=== PATIENT | male | born 1950 | race Caucasian/White ===

== ENCOUNTER → 2017-09-09 | Outpatient (CLI) | payer MEDICARE | END | disposition home or self-care (01) | LOC: PLD 13:18 → LAB SHORT 13:18 | DX: D22.72 Melanocytic nevi of left lower limb, including hip (principal) | CPT/HCPCS: 88305 ==

== ENCOUNTER → 2021-05-31 | Outpatient (CLI) | payer OTHER ==
[2021-05-31 13:26] LABS: BASOPHILS ABSOLUTE AUTO 0.11 K/mm3 (0.00-0.23); BASOPHILS PERCENT AUTO 1 % (0-2); EOSINOPHILS ABSOLUTE AUTO 0.31 K/mm3 (0.00-0.68); EOSINOPHILS PERCENT AUTO 3 % (0-6); Hematocrit 49.7 % (37.0-53.0); Hemoglobin 17.2 g/dL (13.5-17.5); IMMATURE GRAN ABSOLUTE AUTO 0.06 K/mm3 (0.00-0.10); IMMATURE GRAN PERCENT AUTO 1 % (0-1); LYMPHOCYTES ABSOLUTE AUTO 0.84 K/mm3 (0.84-5.20); LYMPHOCYTES PERCENT AUTO 8 % (21-46); MONOCYTES ABSOLUTE AUTO 0.94 K/mm3 (0.16-1.47); MONOCYTES PERCENT AUTO 9 % (4-13); Mean Corpuscular HGB 32.8 pg (26.0-34.0); Mean Corpuscular HGB Conc 34.6 g/dL (31.5-36.5); Mean Corpuscular Volume 95 fL (80-100); Mean Platelet Volume 10.4 fL (9.1-12.4); NEUTROPHILS ABSOLUTE AUTO 8.48 K/mm3 (1.96-9.15); NEUTROPHILS PERCENT AUTO 79 % (41-73); Platelet Count 440 K/mm3 (150-400); RDW Coefficient Variation 13.7 % (11.7-14.2); RDW Standard Deviation 47.6 fL (35.1-46.3); Red Blood Cell Count 5.24 M/mm3 (4.30-5.90); White Blood Cell Count 10.74 K/mm3 (4.00-11.30)
[2021-05-31 13:36] LABS: Albumin/Globulin Ratio 1.3 (0.8-1.8); Bilirubin, Total 0.6 mg/dL (0.1-1.0); Bun/Creatinine Ratio 13.8 (12.0-20.0); Calcium, Blood 9.2 mg/dL (8.5-10.1); Creatinine, Blood 1.23 mg/dL (0.60-1.20); Globulin, Blood 3.2 g/dL (2.2-4.0); Potassium, Blood 4.2 mmol/L (3.5-5.5); Total Protein, Blood 7.2 g/dL (6.4-8.2)
== END ==
LOC: LAB SHORT 13:22
PROVIDERS: General Practice
DX: R06.2 Wheezing (principal)
CPT/HCPCS: 80053; 85025

== ENCOUNTER 2022-09-22 11:54 | Emergency (ER) | payer OTHER ==
[~2022-09-22] VITALS: Ht 172.7 cm; Wt 78.0 kg
[2022-09-22 13:09] LABS: BASOPHILS ABSOLUTE AUTO 0.08 K/mm3 (0.00-0.23); BASOPHILS PERCENT AUTO 1 % (0-2); EOSINOPHILS ABSOLUTE AUTO 0.17 K/mm3 (0.00-0.68); EOSINOPHILS PERCENT AUTO 1 % (0-6); Hemoglobin 18.2 g/dL (13.5-17.5); IMMATURE GRAN ABSOLUTE AUTO 0.05 K/mm3 (0.00-0.10); IMMATURE GRAN PERCENT AUTO 0 % (0-1); LYMPHOCYTES ABSOLUTE AUTO 0.37 K/mm3 (0.84-5.20); LYMPHOCYTES PERCENT AUTO 3 % (21-46); MONOCYTES ABSOLUTE AUTO 0.14 K/mm3 (0.16-1.47); MONOCYTES PERCENT AUTO 1 % (4-13); Mean Corpuscular HGB 29.1 pg (26.0-34.0); Mean Corpuscular HGB Conc 32.7 g/dL (31.5-36.5); Mean Corpuscular Volume 89 fL (80-100); Mean Platelet Volume 10.4 fL (9.1-12.4); NEUTROPHILS ABSOLUTE AUTO 11.55 K/mm3 (1.96-9.15); NEUTROPHILS PERCENT AUTO 94 % (41-73); Platelet Count 533 K/mm3 (150-400); RDW Coefficient Variation 13.9 % (11.7-14.2); RDW Standard Deviation 44.7 fL (35.1-46.3); Red Blood Cell Count 6.25 M/mm3 (4.30-5.90); White Blood Cell Count 12.36 K/mm3 (4.00-11.30)
[2022-09-22 13:15] LABS: Hematocrit 55.6 % (37.0-53.0)
[2022-09-22 13:36] LABS: Source, Urine Clean Catch
[2022-09-22 13:38] LABS: Albumin, Blood 3.8 g/dL (3.4-5.0); Albumin/Globulin Ratio 1.3 (0.8-1.8); Bilirubin, Total 0.5 mg/dL (0.1-1.0); Bun/Creatinine Ratio 17.4 (12.0-20.0); Creatinine, Blood 1.09 mg/dL (0.60-1.20); Globulin, Blood 2.9 g/dL (2.2-4.0); Total Protein, Blood 6.7 g/dL (6.4-8.2)
[2022-09-22 13:39] LABS: Appearance, Urine Clear (Clear); Bilirubin, Urine Neg (Neg); Blood, Urine Neg (Neg); Color, Urine Yellow (P-Yellow); Glucose Qualitative, Urine Neg (Neg); Ketones, Urine Neg (Neg); Leukocyte Esterase, Urine Neg (Neg); Nitrite, Urine Neg (Neg); Protein, Urine 3+ (Neg); Specific Gravity, Urine 1.015 (1.003-1.022); Urobilinogen, Urine NORM (Normal)
[2022-09-22 13:50] LABS: Amorphous Light (0-Heavy); Hyaline Casts 0-2 /lpf (0-2); Squamous Epithelial Cells Rare /hpf (Few)
[2022-09-22 13:51] LABS: Bacteria Few /hpf
[2022-09-22 13:52] LABS: Red Blood Cells, Urine 0-2 /hpf (0-2)
[2022-09-22 17:30] VITALS: BP 172/86
[2022-09-22 17:50] LABS: CPK Creatine Kinase 86 U/L (39-308)
== END 2022-09-22 18:47 | disposition home or self-care (01) ==
LOC: ER 11:54
PROVIDERS: Student in an Organized Health Care Education/Training Program
DX: B34.9 Viral infection, unspecified (principal); E86.0 Dehydration; E11.9 Type 2 diabetes mellitus without complications; I10 Essential (primary) hypertension; Z88.8 Allergy status to other drugs, medicaments and biological substances; Z87.891 Personal history of nicotine dependence
CPT/HCPCS: 80053; 81001; 82550; 85025; 93005; 93010; J1885; J2765; J7030

== ENCOUNTER → 2023-05-09 | Outpatient (CLI) | payer OTHER ==
[~2023-05-09] MED LIST: AMLODIPINE BESYL5 MG PO; AZIT250; B-12500 MC2 PO; C COMPLEX1000 M1 PO; Chlorpromazine50 MG PO; EUTHYROX150 MC1 PO; FISH OIL 1,2001 EAC7 PO; GABA100 PO; LOSA50 PO; SYMBICORT 160-4.6 GM INH; THERA-D2000 UNIT PO; Ventolin/Prove6.7 GM INH
[2023-05-09 14:17] LABS: BASOPHILS ABSOLUTE AUTO 0.01 K/mm3 (0.00-0.23); BASOPHILS PERCENT AUTO 0 % (0-2); EOSINOPHILS PERCENT AUTO 0 % (0-6); Hematocrit 51.1 % (37.0-53.0); Hemoglobin 17.5 g/dL (13.5-17.5); IMMATURE GRAN ABSOLUTE AUTO 0.03 K/mm3 (0.00-0.10); IMMATURE GRAN PERCENT AUTO 1 % (0-1); LYMPHOCYTES ABSOLUTE AUTO 0.31 K/mm3 (0.84-5.20); LYMPHOCYTES PERCENT AUTO 5 % (21-46); MONOCYTES PERCENT AUTO 5 % (4-13); Mean Corpuscular HGB 31.8 pg (26.0-34.0); Mean Corpuscular HGB Conc 34.2 g/dL (31.5-36.5); Mean Corpuscular Volume 93 fL (80-100); Mean Platelet Volume 10.2 fL (9.1-12.4); NEUTROPHILS ABSOLUTE AUTO 5.48 K/mm3 (1.96-9.15); NEUTROPHILS PERCENT AUTO 89 % (41-73); Platelet Count 299 K/mm3 (150-400); RDW Coefficient Variation 14.8 % (11.7-14.2); RDW Standard Deviation 50.3 fL (35.1-46.3); White Blood Cell Count 6.13 K/mm3 (4.00-11.30)
[2023-05-09 14:30] LABS: Albumin/Globulin Ratio 0.8 (0.8-1.8); Bilirubin, Total 0.5 mg/dL (0.1-1.0); Bun/Creatinine Ratio 19.8 (12.0-20.0); Calcium, Blood 8.1 mg/dL (8.5-10.1); Creatinine, Blood 1.67 mg/dL (0.60-1.20); Globulin, Blood 3.9 g/dL (2.2-4.0); Potassium, Blood 4.9 mmol/L (3.5-5.5); Total Protein, Blood 6.9 g/dL (6.4-8.2)
== END | disposition home or self-care (01) ==
LOC: LAB 14:14 → LAB SHORT 14:14
PROVIDERS: Emergency Medicine
DX: R11.10 Vomiting, unspecified (principal)
CPT/HCPCS: 80053; 85025

== ENCOUNTER 2023-05-12 12:24 | Inpatient (IN) | payer OTHER ==
[~2023-05-12] VITALS: Ht 167.6 cm; Wt 70.5 kg
[2023-05-12] MEDS ORDERED: AZIT250 (12:36)
[2023-05-12] MEDS ORDERED: Chlorpromazine50 MG PO (12:36)
[2023-05-12] MEDS ORDERED: EUTHYROX150 MC1 PO (12:37)
[2023-05-12] MEDS ORDERED: GABA100 PO (12:37)
[2023-05-12] MEDS ORDERED: Ventolin/Prove6.7 GM INH (12:37)
[2023-05-12] MEDS ORDERED: AMLODIPINE BESYL5 MG PO (12:37)
[2023-05-12 12:48] LABS: BASOPHILS ABSOLUTE AUTO 0.02 K/mm3 (0.00-0.23); BASOPHILS PERCENT AUTO 0 % (0-2); EOSINOPHILS PERCENT AUTO 0 % (0-6); Hematocrit 47.9 % (37.0-53.0); Hemoglobin 16.4 g/dL (13.5-17.5); IMMATURE GRAN ABSOLUTE AUTO 0.07 K/mm3 (0.00-0.10); IMMATURE GRAN PERCENT AUTO 1 % (0-1); LYMPHOCYTES ABSOLUTE AUTO 0.38 K/mm3 (0.84-5.20); LYMPHOCYTES PERCENT AUTO 5 % (21-46); MONOCYTES ABSOLUTE AUTO 0.13 K/mm3 (0.16-1.47); MONOCYTES PERCENT AUTO 2 % (4-13); Mean Corpuscular HGB 31.6 pg (26.0-34.0); Mean Corpuscular HGB Conc 34.2 g/dL (31.5-36.5); Mean Corpuscular Volume 92 fL (80-100); Mean Platelet Volume 10.6 fL (9.1-12.4); NEUTROPHILS ABSOLUTE AUTO 7.28 K/mm3 (1.96-9.15); NEUTROPHILS PERCENT AUTO 92 % (41-73); Platelet Count 292 K/mm3 (150-400); RDW Coefficient Variation 15.2 % (11.7-14.2); RDW Standard Deviation 51.7 fL (35.1-46.3); Red Blood Cell Count 5.19 M/mm3 (4.30-5.90); White Blood Cell Count 7.88 K/mm3 (4.00-11.30)
[2023-05-12 12:49] LABS: Base Excess Venous -5.4 mmol/L; Bicarbonate Venous 19.9 mmol/L (24.0-30.0); PCO2 Venous 40.3 mmHg (38-42); pH Blood Venous 7.32 (7.34-7.37)
[2023-05-12 14:02] LABS: Albumin, Blood 2.4 g/dL (3.4-5.0); Albumin/Globulin Ratio 0.6 (0.8-1.8); Bilirubin, Total 0.5 mg/dL (0.1-1.0); Bun/Creatinine Ratio 27.6 (12.0-20.0); Calcium, Blood 7.5 mg/dL (8.5-10.1); Creatinine, Blood 1.45 mg/dL (0.60-1.20); Globulin, Blood 3.9 g/dL (2.2-4.0); Potassium, Blood 4.5 mmol/L (3.5-5.5); Total Protein, Blood 6.3 g/dL (6.4-8.2)
[2023-05-12] MEDS ORDERED: LOSA50 PO (18:42)
[2023-05-12] MEDS ORDERED: SYMBICORT 160-4.6 GM INH (18:44)
[2023-05-12] MEDS ORDERED: B-12500 MC2 PO (18:45)
[2023-05-12] MEDS ORDERED: THERA-D2000 UNIT PO (18:46)
[2023-05-12] MEDS ORDERED: FISH OIL 1,2001 EAC7 PO (18:46)
[2023-05-12] MEDS ORDERED: C COMPLEX1000 M1 PO (18:46)
[2023-05-12 19:22] LABS: Influenza A, PCR NEGATIVE (NEGATIVE); Influenza B, PCR NEGATIVE (NEGATIVE); Resp Syncytial Virus, PCR NEGATIVE (NEGATIVE)
[2023-05-12 19:45] LABS: SARS-Cov-2 (COVID-19) PCR, MMC POSITIVE (NEGATIVE)
[2023-05-12 20:47] VITALS: BP 150/77
[2023-05-12 22:39] LABS: Bun/Creatinine Ratio 27.2 (12.0-20.0); Calcium, Blood 7.4 mg/dL (8.5-10.1); Creatinine, Blood 1.73 mg/dL (0.60-1.20); Potassium, Blood 4.7 mmol/L (3.5-5.5)
[2023-05-12 23:19] VITALS: BP 157/84
[2023-05-13 00:53] LABS: Glucose, Blood 494 mg/dL (70-99)
[2023-05-13 03:30] VITALS: BP 150/86
--- NOTE | 2023-05-13 04:34 | NUR ---
SHIFT SUMMARY PT IS ALERT AND ORIENTED X 4, COOPERATIVE WITH CARE AND ABLE TO MAKE NEEDS KNOWN. AT BEGINNING OF SHIFT PT WAS ON 8L NC AND HE WAS SOB. RESPIRATORY THERAPY WAS IN TO SEE PT AND PT IS NOW ON BIPAP W/11L BLEED IN. HE HAS TAKEN A FEW SHORT BREAKS THIS SHIFT AND WAS PLACED ON 11L NC. PT HAS HX OF COPD, HIS 02 SATURATION HAS BEEN BETWEEN 88 AND 92 ALL SHIFT. AT BEGINNING OF SHIFT PTS BLOOD SUGAR WAS >500, MD NOTIFIED, ORDERS PLACED, AND PT MEDICATED PER ORDERS. PT'S BLOOD SUGARS HAVE BEEN CONTINUALLY CHECKED THIS SHIFT AND HE HAS CONTINUED TO BE MEDICATED PER EMAR. HIS BLOOD SUGAR LEVELS HAVE COME DOWN FROM >500. PT SAID HE HAS NOT HAD A BOWEL MOVEMENT IN A WEEK, MD NOTIFIED, ORDERS WERE PLACED, AND PT MEDICATED PER EMAR. PT IS CONTINENT OF BOTH BLADDER AND BOWELS. HE USES URINAL INDEPNDENTLY AT BEDSIDE. HE IS ABLE TO USE BEDSIDE COMMODE WITH 1 PERSON ASSIST. HE IS VERY WEAK WHEN MOVING AROUND. PT CURRENTLY RESTING IN BED WITH BIPAP ON. CALL LIGHT WITHIN REACH.
[2023-05-13 05:41] LABS: BASOPHILS ABSOLUTE AUTO 0.01 K/mm3 (0.00-0.23); BASOPHILS PERCENT AUTO 0 % (0-2); EOSINOPHILS PERCENT AUTO 0 % (0-6); Hematocrit 44.8 % (37.0-53.0); Hemoglobin 15.7 g/dL (13.5-17.5); IMMATURE GRAN ABSOLUTE AUTO 0.06 K/mm3 (0.00-0.10); IMMATURE GRAN PERCENT AUTO 1 % (0-1); LYMPHOCYTES ABSOLUTE AUTO 0.25 K/mm3 (0.84-5.20); LYMPHOCYTES PERCENT AUTO 4 % (21-46); MONOCYTES ABSOLUTE AUTO 0.14 K/mm3 (0.16-1.47); MONOCYTES PERCENT AUTO 3 % (4-13); Mean Corpuscular HGB 31.8 pg (26.0-34.0); Mean Corpuscular Volume 91 fL (80-100); Mean Platelet Volume 10.2 fL (9.1-12.4); NEUTROPHILS ABSOLUTE AUTO 5.21 K/mm3 (1.96-9.15); NEUTROPHILS PERCENT AUTO 92 % (41-73); Platelet Count 352 K/mm3 (150-400); RDW Coefficient Variation 14.8 % (11.7-14.2); RDW Standard Deviation 49.4 fL (35.1-46.3); Red Blood Cell Count 4.94 M/mm3 (4.30-5.90); White Blood Cell Count 5.67 K/mm3 (4.00-11.30)
[2023-05-13 06:39] LABS: Albumin, Blood 2.3 g/dL (3.4-5.0); Albumin/Globulin Ratio 0.5 (0.8-1.8); Bilirubin, Total 0.3 mg/dL (0.1-1.0); Bun/Creatinine Ratio 28.4 (12.0-20.0); Calcium, Blood 8.1 mg/dL (8.5-10.1); Creatinine, Blood 1.69 mg/dL (0.60-1.20); Globulin, Blood 4.2 g/dL (2.2-4.0); Potassium, Blood 4.4 mmol/L (3.5-5.5); Total Protein, Blood 6.5 g/dL (6.4-8.2)
[2023-05-13 08:15] LABS: D-Dimer, Quantitative 1.37 mg/L FEU (0.00-0.52); International Normalized Ratio 1.05
[2023-05-13 08:24] VITALS: BP 148/79
--- NOTE | 2023-05-13 11:21 | NUR ---
AM NOTE; PT ON 10L OF O2 THIS MORNING UPON SHIFT ASSESSMENT, VITALS HRR SR/ST 90-110'S, SBP 140'S, AFEBRILE. SOB//NON PRODUCTIVE COUGH WITH EXERTION, COUGH MEDICINE GIVEN THIS MORNING. BIPAP AT BEDSIDE, BREATHING TX PER RT. PT DENIES ANY CHEST PAIN/PRESSURE NO DISCOMFORT, FEELING TIRED AND FATUGED, HAS TREMORS WHICH PT REPORTS BASELINE. NO REPORTED BM YET AT THIS TIME, WILL GIVE PRN MIRALAX TODAY. NO OTHER ISSUES REPORTED AT THIS TIME, PT HAS BEEN CALLING APPROPRIATELY, CALL LIGHTS IN REACH WILL CONTINUE TO MONITOR
[2023-05-13 12:18] VITALS: BP 148/76
[2023-05-13 16:23] VITALS: BP 156/75
--- NOTE | 2023-05-13 18:32 | NUR ---
PT SUMMARY: NO ACUTE CHANGE FOR THE SHIFT. PT REMAINS ON 9-10L OF O2 VIA NASAL CANNULA PT SOB WITH EXERTION DESATS TO LOW 80'S, SBP 150'S, AFEBRILE. PT WITH DRY COUGH AND AUDIBLE WHEEZES T/O SHIFT MEDICATED WITH COUGH MEDICINE AND BREATHING TX PER RT. PT SBA TO BEDSIDE COMMODE HAD 2 LOOSE BMS FOR THE SHIFT. PT WITH GOOD APPETITE. FAMILY CAME IN TO SEE PT THIS AFTERNOON WAS GIVEN UPDATE REGARDING PLAN OF CARE. NO OTHER ISSUES ENCOUNTERED FOR THE SHIFT, PT HAS BEEN CALLING APPROPRIATELY, WILL REPORT TO ONCOMING SHIFT
[2023-05-13 20:06] VITALS: BP 158/83
--- NOTE | 2023-05-13 20:34 | NUR ---
PHYSICIAN COMMUNICATION CALLED [employer] SUPERINTENDENT RESIDENT, DR ANDRES, TO NOTIFY HER THAT THE PATIENT'S BLOOD SUGAR WAS 394 AFTER BEING GIVEN 8 UNITS HUMALOG AT 1749 FOR A BLOOD SUGAR OF 433. INFORMED HER THAT THIS RN ADMINISTERED 6 UNITS HUMALOG PER THE HIGH SLIDING SCALE FOR THE SUGAR OF 394, AND THAT ABOUT AN HOUR AGO THE PATIENT HAD TO BE PLACED ON BIPAP BY THE RESPIRATORY THERAPIST TO HELP WITH OXYGEN DEMAND. DR ANDRES ORDERED A BMP FOR NOW AND TO INCREASE THE PATIENT'S AM GLARGINE TO 20 UNITS. WILL CONTINUE TO MONITOR.
[2023-05-13 21:26] LABS: Bun/Creatinine Ratio 30.4 (12.0-20.0); Creatinine, Blood 2.07 mg/dL (0.60-1.20); Potassium, Blood 3.8 mmol/L (3.5-5.5)
[2023-05-13 23:55] VITALS: BP 145/85
[2023-05-14] VITALS (8 sets, daily range): BP systolic 150–179; BP diastolic 73–89
[2023-05-14 05:27] LABS: BASOPHILS ABSOLUTE AUTO 0.01 K/mm3 (0.00-0.23); BASOPHILS PERCENT AUTO 0 % (0-2); EOSINOPHILS PERCENT AUTO 0 % (0-6); Hematocrit 48.5 % (37.0-53.0); Hemoglobin 16.9 g/dL (13.5-17.5); IMMATURE GRAN ABSOLUTE AUTO 0.09 K/mm3 (0.00-0.10); IMMATURE GRAN PERCENT AUTO 1 % (0-1); LYMPHOCYTES ABSOLUTE AUTO 0.45 K/mm3 (0.84-5.20); LYMPHOCYTES PERCENT AUTO 6 % (21-46); MONOCYTES PERCENT AUTO 3 % (4-13); Mean Corpuscular HGB 31.9 pg (26.0-34.0); Mean Corpuscular HGB Conc 34.8 g/dL (31.5-36.5); Mean Corpuscular Volume 92 fL (80-100); Mean Platelet Volume 10.1 fL (9.1-12.4); NEUTROPHILS ABSOLUTE AUTO 6.65 K/mm3 (1.96-9.15); NEUTROPHILS PERCENT AUTO 90 % (41-73); Platelet Count 441 K/mm3 (150-400); RDW Coefficient Variation 15.4 % (11.7-14.2); RDW Standard Deviation 51.5 fL (35.1-46.3)
[2023-05-14 06:09] LABS: Calcium, Blood 8.4 mg/dL (8.5-10.1); Creatinine, Blood 2.12 mg/dL (0.60-1.20); Potassium, Blood 4.3 mmol/L (3.5-5.5)
--- NOTE | 2023-05-14 06:48 | NUR ---
SHIFT SUMMARY PATIENT ALERT AND ORIENTED X4. HAD NO COMPLAINTS OF PAIN OR SHORTNESS OF BREATH. PATIENT WAS ON BIPAP OVERNIGHT WITH SPO2 >90%. BLOOD SUGARS CONTINUE TO BE ELEVATED. VITAL SIGNS STABLE, SINUS RHYTHM TO SINUS TACH ON TELE. WILL CONTINUE TO MONITOR. CALL LIGHT WITHIN REACH.
--- NOTE | 2023-05-14 10:25 | NUR ---
AM NOTE this rn assumed care at 0700. vital signs stable. tele sinus tach 102. spo2 >90% on 10l nc. patient reports shortness of breath with exertion. patient reports no pain or chest pain/pressure. patient is alert and oriented x4. perrla. patient is able to make needs known and uses call light appropriately. patient is a one person assist when getting out of bed. see shift assessment for further detials. md sen and team in to see patient this am and discussed plan of care. plan of care remains up to date.
[2023-05-14 14:24] LABS: Calcium, Blood 8.2 mg/dL (8.5-10.1); Potassium, Blood 3.7 mmol/L (3.5-5.5)
--- NOTE | 2023-05-14 17:53 | NUR ---
shift summary patient neuro remains intact and no changes. perrla. patient has been able to make needs known and uses call light appropriately. patient blood pressure elevated this evening, md sen made aware and new orders placed. see vital signs for trend and improvment from medication. tele sinus tach 100-110 and will touch into 120s with activity. spo2 >90% on 6-10l nc throughout the day, patient is currently on 7l nc with spo2 >90%. patient family at bedside and educated on proper ppe techniques and to wash their hands before leaving. patient family verbalized understanding. plan of care remains up to date. call light within reach.
[2023-05-15 03:29] VITALS: BP 162/92
--- NOTE | 2023-05-15 06:58 | NUR ---
SHIFT SUMMARY PATIENT ALERT AND ORIENTED X4. HAD NO COMPLAINTS OF PAIN. WORE BIPAP OVERNIGHT, CURRENTLY ON 7 LITERS O2 VIA NC, IS DYSPNIC ON EXERTION. VITAL SIGNS STABLE, HAD A 21 BEAT RUN OF SVT OVERNIGHT, MD AWARE. WILL CONTINUE TO MONITOR. CALL LIGHT WITHIN REACH.
[2023-05-15 07:49] VITALS: BP 170/88
[2023-05-15 12:05] VITALS: BP 167/73
[2023-05-15 13:24] LABS: Bun/Creatinine Ratio 35.9 (12.0-20.0); Calcium, Blood 8.9 mg/dL (8.5-10.1); Creatinine, Blood 1.81 mg/dL (0.60-1.20); Potassium, Blood 4.3 mmol/L (3.5-5.5)
[2023-05-15 16:03] VITALS: BP 162/74
--- NOTE | 2023-05-15 19:35 | NUR ---
DR. ALLEN NOTIFIED OF PT CBG OF 154 TONIGHT. SEE ADJUSTMENTS MADE TO HUMALOG ORDERS.
--- NOTE | 2023-05-15 19:37 | NUR ---
SUMMARY: PT ADMITTED FOR COVID, PNA. A/O, VSS TODAY. PT CURRENTLY ON 2L, SP02 90-94%. RR 20-24. PT REPORTS FEELING BETTER TODAY WITH MORE ENERGY. ABLE TO AMBULATE TO CHAIR SEVERAL TIMES TODAY, SBA. NO ACUTE EVENTS WITH TELE ST 105-118, DENIES CP. TREMORS APPEAR TO BE BETTER TONIGHT. PT USING CALL LIGHT TO MAKE NEEDS KNOWN. NO ACUTE SAFETY CONCERNS. REPORT PASSED TO SHASHANK STEINER.
[2023-05-15 21:53] VITALS: BP 157/87
[2023-05-16 00:14] VITALS: BP 172/88
[2023-05-16 01:34] VITALS: BP 152/75
[2023-05-16 04:06] VITALS: BP 147/71
[2023-05-16 04:49] LABS: Hematocrit 45.8 % (37.0-53.0); Hemoglobin 15.5 g/dL (13.5-17.5); Mean Corpuscular HGB 31.1 pg (26.0-34.0); Mean Corpuscular HGB Conc 33.8 g/dL (31.5-36.5); Mean Corpuscular Volume 92 fL (80-100); Mean Platelet Volume 9.7 fL (9.1-12.4); Platelet Count 552 K/mm3 (150-400); RDW Coefficient Variation 16.2 % (11.7-14.2); RDW Standard Deviation 55.2 fL (35.1-46.3); Red Blood Cell Count 4.98 M/mm3 (4.30-5.90); White Blood Cell Count 9.35 K/mm3 (4.00-11.30)
[2023-05-16 05:12] LABS: BAND PERCENT MAN 3 % (0-8); BASOPHILS ABSOLUTE MAN 0.09 K/mm3 (0.00-0.23); BASOPHILS PERCENT MAN 1 % (0-2); EOSINOPHILS PERCENT MAN 0 % (0-6); LYMPHOCYTES % ATYPICAL MANUAL 1 % (0-0); LYMPHOCYTES ABSOLUTE MAN 1.02 K/mm3 (0.84-5.20); LYMPHOCYTES PERCENT MAN 10 % (21-46); MONOCYTES ABSOLUTE MAN 0.84 K/mm3 (0.16-1.47); MONOCYTES PERCENT MAN 9 % (4-13); MYELOCYTE ABSOLUTE MAN 0.09 K/mm3 (0.00-0.00); MYELOCYTE PERCENT MAN 1 % (0-0); NEUTROPHILS ABSOLUTE MAN 7.29 K/mm3 (1.96-9.15); SEG NEUTROPHILS PERCENT MAN 75 % (41-73); TOTAL CELLS COUNTED 100
[2023-05-16 05:25] LABS: Bun/Creatinine Ratio 40.5 (12.0-20.0); Creatinine, Blood 1.73 mg/dL (0.60-1.20); Potassium, Blood 4.6 mmol/L (3.5-5.5)
--- NOTE | 2023-05-16 06:36 | NUR ---
SHIFT SUMMARY PATIENT ALERT AND ORIENTED X 4. HAD NO COMPMLAINTS OF PAIN, BECOMES SHORT OF BREATH WITH ACTIVITY. ON 2 LITERS O2 VIA NC OVERNIGHT WITH SPO2 95%. MEDICATED PER EMAR FOR SBP >170, SINUS TACH ON TELE. WILL CONTINUE TO MONITOR. CALL LIGHT WITHIN REACH.
[2023-05-16 08:18] VITALS: BP 178/88
[2023-05-16 11:43] VITALS: BP 161/94
[2023-05-16] MEDS ORDERED: Tessalon200 MG PO (15:51)
[2023-05-16] MEDS ORDERED: PRED20 PO (15:51)
[2023-05-16] MEDS ORDERED: IPRAT-ALBUT 0.5-3 ML INH (15:52)
[2023-05-16] MEDS ORDERED: VISBIOME 112.51 EACH PO (15:52)
--- NOTE | 2023-05-16 16:27 | NUR ---
UPDATE PT ALERT AND ORIENTED. VS STABLE. PT DENIES ANY PAIN. HOME O2 EVAL COMPLETE AND [facility] DELIVERED PORTABLE O2. PT PROVIDED DISCHARGE INSTRUCTIONS AND EDUCATED ON MEDICATIONS. ALL QUESTIONS ANSWERED. PT'S SISTER IN TO GROUP TEACHER PATIENT. PT TAKEN OUT BY WC
== END 2023-05-16 16:50 | disposition home health service (06) | DRG 871 ==
LOC: ER 12:24 → PCU 16:15
PROVIDERS: Emergency Medicine; Family Medicine; Student in an Organized Health Care Education/Training Program; ADMIT Hospitalist
PROC: XW033E5 Introduction of Remdesivir Anti-infective into Peripheral Vein, Percutaneous Approach, New Technology Group 5 (ICD-10-PCS; principal; 2023-05-12)
PROC: 3E03329 Introduction of Other Anti-infective into Peripheral Vein, Percutaneous Approach (ICD-10-PCS; 2023-05-12)
PROC: 3E0333Z Introduction of Anti-inflammatory into Peripheral Vein, Percutaneous Approach (ICD-10-PCS; 2023-05-12)
PROC: 5A09457 Assistance with Respiratory Ventilation, 24-96 Consecutive Hours, Continuous Positive Airway Pressure (ICD-10-PCS; 2023-05-12)
DX: A41.89 Other specified sepsis (principal); J12.82 Pneumonia due to coronavirus disease 2019; U07.1 COVID-19; J96.21 Acute and chronic respiratory failure with hypoxia; J15.9 Unspecified bacterial pneumonia; J44.0 Chronic obstructive pulmonary disease with (acute) lower respiratory infection; J44.1 Chronic obstructive pulmonary disease with (acute) exacerbation; N17.9 Acute kidney failure, unspecified; I47.10 Supraventricular tachycardia, unspecified; Z66 Do not resuscitate; R65.20 Severe sepsis without septic shock; K59.00 Constipation, unspecified; M50.30 Other cervical disc degeneration, unspecified cervical region; I12.9 Hypertensive chronic kidney disease with stage 1 through stage 4 chronic kidney disease, or unspecified chronic kidney disease; E11.22 Type 2 diabetes mellitus with diabetic chronic kidney disease; N18.32 Chronic kidney disease, stage 3b; E03.9 Hypothyroidism, unspecified; N40.0 Benign prostatic hyperplasia without lower urinary tract symptoms; R79.1 Abnormal coagulation profile; Z79.890 Hormone replacement therapy; Z87.891 Personal history of nicotine dependence; Z99.81 Dependence on supplemental oxygen
CPT/HCPCS: 0241U; 36415; 71045; 80048; 80053; 82803; 82947; 83036; 83735; 84132; 85025; 85379; 85610; 85730; 87040; 93005; 93010; 94640; 94660; 94664; 94762; 99285-25; A9270; C9113; C9399; J0248; J0360; J0696; J1650; J1815; J2930; J7030; J7050

== ENCOUNTER 2024-12-28 10:49 | Inpatient (IN) | payer OTHER ==
[~2024-12-28] VITALS: Ht 172.7 cm; Wt 74.7 kg
[~2024-12-28 10:49] MED LIST changes: +IPRAT-ALBUT 0.5-3 ML INH; +PRED20 PO; +Tessalon200 MG PO; +VISBIOME 112.51 EACH PO
[2024-12-28 11:52] LABS: BASOPHILS ABSOLUTE AUTO 0.07 K/mm3 (0.00-0.23); BASOPHILS PERCENT AUTO 1 % (0-2); EOSINOPHILS ABSOLUTE AUTO 0.34 K/mm3 (0.00-0.68); EOSINOPHILS PERCENT AUTO 3 % (0-6); Hematocrit 52.1 % (37.0-53.0); Hemoglobin 17.6 g/dL (13.5-17.5); IMMATURE GRAN ABSOLUTE AUTO 0.04 K/mm3 (0.00-0.10); IMMATURE GRAN PERCENT AUTO 0 % (0-1); LYMPHOCYTES ABSOLUTE AUTO 1.10 K/mm3 (0.84-5.20); LYMPHOCYTES PERCENT AUTO 9 % (21-46); MONOCYTES ABSOLUTE AUTO 0.64 K/mm3 (0.16-1.47); MONOCYTES PERCENT AUTO 5 % (4-13); Mean Corpuscular HGB Conc 33.8 g/dL (31.5-36.5); Mean Corpuscular Volume 92 fL (80-100); NEUTROPHILS ABSOLUTE AUTO 9.62 K/mm3 (1.96-9.15); NEUTROPHILS PERCENT AUTO 82 % (41-73); NRBC ABSOLUTE 0.00 K/mm3 (0.00-0.02); NRBC Auto 0.0 /100 WBC (0.0-0.2); Platelet Count 573 K/mm3 (150-400); RDW Coefficient Variation 13.6 % (11.7-14.2); RDW Standard Deviation 46.3 fL (35.1-46.3)
[2024-12-28 12:15] LABS: Alanine Aminotransfer (ALT/SGP 31.0 U/L (12-78); Albumin, Blood 3.7 g/dL (3.4-5.0); Albumin/Globulin Ratio 1.1 (0.8-1.8); Anion Gap 8.0 mmol/L (3-11); Aspartate Aminotrans (AST/SGOT 22.0 U/L (12-37); Bilirubin, Total 0.4 mg/dL (0.1-1.0); Blood Urea Nitrogen 33.0 mg/dL (8-24); CO2, Blood 25.0 mmol/L (21-32); Calcium, Blood 8.8 mg/dL (8.5-10.1); Chloride, Blood 107.0 mmol/L (98-108); Creatinine, Blood 1.44 mg/dL (0.60-1.20); Globulin, Blood 3.3 g/dL (2.2-4.0); Glucose, Blood 143.0 mg/dL (70-99); Potassium, Blood 5.1 mmol/L (3.5-5.5); Sodium, Blood 135.0 mmol/L (136-145); Total Protein, Blood 7.0 g/dL (6.4-8.2)
[2024-12-28 12:16] LABS: Prothrombin Time Results 11.2 Sec (9.7-11.5)
[2024-12-28] MEDS ORDERED: Glipizide Xl2.5 MG (15:19)
[2024-12-28] MEDS ORDERED: TELMISARTAN80 MG PO (15:19)
[2024-12-28] MEDS ORDERED: EZETIMIBE10 M6 PO (15:19)
[2024-12-28] MEDS ORDERED: NS 1,000 ML IV SCH (15:30)
[2024-12-28 15:48] VITALS: BP 171/86
[2024-12-28] MEDS ORDERED: Insulin Human Lispro 100 Units/ML 3ML Syringe SC SCH (16:30)
[2024-12-28 20:04] VITALS: BP 164/87
--- NOTE | 2024-12-28 20:09 | NUR ---
Patient arrived to room 362 via gurney from ER at 1540. Patient transferred to bed without difficulty. Patient with noted right arm flaccidity and decreased strength to right leg noted. Patient is alert and oriented x3 with slow speech, no noted slurred speech. Patient denied pain, SOB, CP, N/V/D. Patient had MRI completed and awaiting results. Bed in lowest position; call light within reach. Report given to awake overnight counselor nurse.
[2024-12-29 03:40] VITALS: BP 179/91
--- NOTE | 2024-12-29 04:34 | NUR ---
SHIFT SUMMARY ADMITTED FOR CVA. RIGHT SIDED DEFICITS. DNR CODE. ALLOWING PERMISSIVE HTN. PLAN IS FOR 3 WEEKS DAPT. ON 3 LPM O2. 1 ASSIST W/FWW. TELEMETRY: NSR @ 94 BPM. ADA DIET. PALLIATIVE CARE IS CONSULTED. [facility] CBG'S - MEDIUM SS. AWAITING PT EVAL.
[2024-12-29 05:14] LABS: Hematocrit 54.3 % (37.0-53.0); Hemoglobin 18.3 g/dL (13.5-17.5); Mean Corpuscular HGB Conc 33.7 g/dL (31.5-36.5); Mean Corpuscular Volume 91 fL (80-100); NRBC ABSOLUTE 0.00 K/mm3 (0.00-0.02); NRBC Auto 0.0 /100 WBC (0.0-0.2); Platelet Count 547 K/mm3 (150-400); RDW Coefficient Variation 13.6 % (11.7-14.2); RDW Standard Deviation 45.8 fL (35.1-46.3)
[2024-12-29] MEDS ORDERED: Levothyroxine Sodium 0.15 MG Tab PO SCH (06:00)
[2024-12-29 06:10] LABS: Albumin, Blood 3.8 g/dL (3.4-5.0); Anion Gap 11 mmol/L (3-11); Blood Urea Nitrogen 31 mg/dL (8-24); CO2, Blood 25 mmol/L (21-32); Calcium, Blood 8.8 mg/dL (8.5-10.1); Chloride, Blood 106 mmol/L (98-108); Creatinine, Blood 1.58 mg/dL (0.60-1.20); Glucose, Blood 132 mg/dL (70-99); Magnesium, Blood 2.1 mg/dL (1.6-2.4); Phosphorus, Blood 3.7 mg/dL (2.5-4.9); Potassium, Blood 4.6 mmol/L (3.5-5.5); Sodium, Blood 137 mmol/L (136-145)
[2024-12-29 08:07] VITALS: BP 148/83
[2024-12-29 14:21] VITALS: BP 155/83
[2024-12-29 16:27] VITALS: BP 169/89
--- NOTE | 2024-12-29 17:04 | NUR ---
PT HAS BEEN DOING WELL AOX4 AND COOPERATIVE OF CARE. PT IS ABLE TO TALK WELL NOW AND SEEMS TO HAVE FUNCTION OF R LEG ALLOWING HIM TO BE ABLE TO AMBULATE DOWN THE HALLWAY WITH PHYSICAL THERAPY. PT AT THE START OF SHIFT COULD ONLY RAISE R ARM UP WITH LIMP HAND AND NOW MILD MOVEMENT IS NOTED IN R HAND WELL. FAMILY DROPPED HOME CPAP OFF FOR TONIGHT AND RT WAS NOTIFIED TO SET UP SYSTEM IN ROOM. PT HAS CALL LIGHT IN REACH AND IS ABLE TO MAKE NEEDS KNOWN WILL CONTINUE TO MONITOR.
[2024-12-29 19:43] VITALS: BP 146/83
[2024-12-29] MEDS ORDERED: Albuterol 2.5 MG/3 ML VIAL INH PRN (19:45)
[2024-12-29 23:46] VITALS: BP 124/60
--- NOTE | 2024-12-30 04:18 | NUR ---
SHIFT SUMMARY ADMITTED FOR CVA. DNR CODE. PLAN IS FOR PERMISSIVE HTN AND 3 WEEKS OF DAPT RX. TELEMETRY: TACHY @ 107 BPM. ADA DIET. [facility] - MEDIUM SS. ON RA. A&O X4. 1 ASSIST W/CVA WALKER - BRP. RIGHT SIDED DEFICITS AT FIRST, NOW IMPROVING. SOME MOVEMENT OF RIGHT HAND AND ARM NOTED NOW (PREVIOUSLY FLACCID). PT/OT/ST ARE ASSISTING WITH CARE.
[2024-12-30 04:24] VITALS: BP 128/71
[2024-12-30 07:32] VITALS: BP 138/80
[2024-12-30] MEDS ORDERED: LOSA50 PO (11:22)
[2024-12-30] MEDS ORDERED: ASPI81CH PO (11:22)
[2024-12-30] MEDS ORDERED: CLOP75 PO (11:23)
== END 2024-12-30 11:52 | disposition home or self-care (01) | DRG 65 ==
LOC: ER 10:49 → MEDS 13:45 → ENPENDDIS 12-30 11:08 → MEDS 12-30 11:52
PROVIDERS: Emergency Medicine; ADMIT Internal Medicine
PROC: 5A09357 Assistance with Respiratory Ventilation, Less than 24 Consecutive Hours, Continuous Positive Airway Pressure (ICD-10-PCS; principal; 2024-12-28)
DX: I63.312 Cerebral infarction due to thrombosis of left middle cerebral artery (principal); G81.91 Hemiplegia, unspecified affecting right dominant side; N18.30 Chronic kidney disease, stage 3 unspecified; J44.9 Chronic obstructive pulmonary disease, unspecified; Z66 Do not resuscitate; R09.02 Hypoxemia; G47.33 Obstructive sleep apnea (adult) (pediatric); E11.22 Type 2 diabetes mellitus with diabetic chronic kidney disease; I67.9 Cerebrovascular disease, unspecified; I12.9 Hypertensive chronic kidney disease with stage 1 through stage 4 chronic kidney disease, or unspecified chronic kidney disease; E03.9 Hypothyroidism, unspecified; R47.81 Slurred speech; Z86.73 Personal history of transient ischemic attack (TIA), and cerebral infarction without residual deficits; Z88.8 Allergy status to other drugs, medicaments and biological substances; Z79.890 Hormone replacement therapy; Z79.51 Long term (current) use of inhaled steroids; Z79.52 Long term (current) use of systemic steroids; Z87.891 Personal history of nicotine dependence; Z86.16 Personal history of COVID-19
CPT/HCPCS: 36415; 70450; 70496; 70498; 70551; 80053; 80069; 82947; 83036; 83690; 83735; 84484; 85025; 85027; 85610; 85730; 92610; 93005; 93010; 93306; 94762; 97110; 97112; 97116; 97162; 97165; 99285-25; A9270; Q9967